=== PATIENT | male | born 1955 | race Caucasian/White ===

== ENCOUNTER → 2016-12-21 | Outpatient (CLI) | payer OTHER, MEDICARE ==
--- NOTE | 2016-12-21 09:45 | CT ---
EXAMINATION TYPE: CT cervical spine wo con DATE OF EXAM: 12/21/2016 COMPARISON: Correlation MRI 06/04/2011 HISTORY: 61-year-old male with a neck pain and cervicalgia. TECHNIQUE: Contiguous axial scanning of the cervical spine without IV contrast. Coronal and sagittal reconstructions performed. CT DLP: 751.3 mGycm Automated exposure control for dose reduction was used. FINDINGS: Postsurgical changes of C4-C5 ACDF. There is satisfactory interbody ankylosis and partial bony fusion along the facet joints as well. There is reversal of the normal cervical lordosis at this level. Bulky anterior endplate spondylosis extends both superiorly and inferiorly from the fused level. Supe riorly, this bulky extension of bone abuts the anterior margin of the C3 vertebral body. There is scott e sclerosis and subcortical cystic change at the site of abutment. There is facet arthropathy throughout and mild degenerative disc disease at C2-C3. Scattered uncovert ebral joint arthropathy. No craniocervical junction abnormality, predental space widening, or prevertebral soft tissue swellin g. There is degenerative change of the C1 dens articulation. At C2-C3, facet and uncovertebral joint arthropathy with a mild posterior disc bulge. No significant spinal canal or neuroforaminal stenosis. At C3-C4, the level above the fusion, there is tiny central disc protrusion with bilateral facet and uncovertebral joint degenerative change. This results in mild left neuroforaminal stenosis with out s ignificant spinal canal stenosis. At the fused C4-C5 level, there is uncovertebral joint degenerative change mildly narrowing bilateral neural foramina. No spinal canal stenosis. At C5-C6 and below, artifact from the patient's shoulders limits assessment of the spinal canal. At C5-C6, uncovertebral joint and facet degenerative changes mildly narrow the bilateral neuroforamin a. At C6-C7, similar changes are present with mild bilateral neuroforaminal stenosis, greater on the rig ht. At C7-T1, similar changes are present with mild right greater than left neuroforaminal stenosis. IMPRESSION: 1. Prior C4-C5 ACDF with satisfactory bony ankylosis. 2. However, there is bulky endplate spondylosis extending up and down from the fused level. Superior to the fused level, the bulky extension of bone abuts the anterior aspect of the C3 vertebral body wh ere there is associated pseudoarticular arthrosis likely due to continual abnormal bony abutment. 3. Reversal of the normal cervical lordosis centered at the fused level. 4. Variable mild multilevel neuroforaminal stenoses. Small posterior disc bulges at both C2-C3 and C3 -C4.
== END | disposition home or self-care (01) ==
LOC: RADCTMAIN 08:27
PROVIDERS: ATTEND Psychiatry & Neurology Neurology
DX: M99.71 Connective tissue and disc stenosis of intervertebral foramina of cervical region (principal); M50.21 Other cervical disc displacement, high cervical region; Z98.1 Arthrodesis status
CPT/HCPCS: 72125

== ENCOUNTER → 2017-03-25 | Outpatient (CLI) | payer OTHER, MEDICARE ==
--- NOTE | 2017-03-25 08:20 | MR ---
EXAMINATION TYPE: MR brain wo cspine wo/w DATE OF EXAM: 03/25/2017 COMPARISON: CT cervical spine December 21, 2016. MRI cervical spine June 04, 2011. HISTORY: Tremors, Cervicalgia per order. Bilateral hearing loss per patient. Neck pain causing numbne ss in fingers for 15 years per patient. Bilateral arm and finger pain or weakness per patient. TECHNIQUE: Multiplanar, multisequence imaging of the cervical spine, brain, and brainstem are all per formed without IV contrast. The cervical spine imaging is performed with IV contrast, patient is inje cted with 10.5 cc of gadolinium this for the study. FINDINGS: BRAIN: Diffusion weighted images demonstrate no evidence of a recent infarct or other diffusion abnormality. There is no worrisome extra-axial fluid collection. There is ventricular and sulcal prominence consis tent with diffuse cerebral atrophy. There are few scattered foci of T2 hyperintensity seen throughout the white matter bilaterally. Approximately 5-8 small lesions all measuring 4 mm or smaller in size are present. Midline structures demonstrate normal morphology. The craniocervical junction appears within normal limits. Normal vascular flow voids are present. The globes are intact bilaterally. There is increased fluid signal in left mastoid air cells. There is mild mucosal thickening inferior maxillary sinuses and bilateral ethmoid sinuses otherwise paranasal sinuses are clear. IMPRESSION: 1. There is mild diffuse cerebral atrophy and chronic small vessel ischemic change appreciated. 2. Possible mild left-sided mastoiditis, correlate clinically. C-SPINE: FINDINGS: Sagittal images of the cervical spine show the craniocervical junction to appear within nor mal limits. There is persistent levoconvex scoliosis centered in the upper thoracic spine. The cervi milo and upper thoracic spinal cord remains normal in caliber. There is persistent increased signal o r syrinx inferior C3 level most prominent through C6-C7 disc space level with smaller syrinx seen radha r cervicothoracic junction unchanged from prior. There is reversal of normal cervical curvature on sa gittal images redemonstrated. There is redemonstration of artifact from anterior fusion hardware C4-C 5 level. There is large bony fragment anteriorly at C3 level redemonstrated perhaps remote fractured osteophyte when correlating with prior CT. Vertebral body heights and disc space heights above and be low surgical levels are within normal limits. The bone marrow signal intensity is within normal limit s. No suspicious enhancement is seen. Axial images show the C2-C3 and C3-C4 levels to appear within normal limits. Syrinx begins inferior C 3 level Axial images at C4-C5 level show syrinx, there is artifact from surgical hardware. Spinal canal is pr eserved. Bilateral neural foramina are felt patent. Axial images at C5-C6 and C6-C7 level show new small central disc protrusions mildly effacing anterio r thecal sac since 2012 MRI. Bilateral neural foramina are felt to remain patent. Axial images at C7-T1 level remain within normal limits. There is medial course to bilateral carotid arteries noted. IMPRESSION: Reversal of normal cervical curvature with large syrinx redemonstrated. Postsurgical clark ge C4-C5 level again seen. No significant change in alignment. New mild degenerative changes C5-C6 an d C6-C7 level are appreciated.
--- NOTE | 2017-03-25 09:09 | BD ---
EXAMINATION TYPE: MG DEXA axial skeleton. DATE OF EXAM: 03/25/2017 COMPARISON: NONE CLINICAL HISTORY: Ankylosing spondylosis per order. Height: 250 Weight: 73 FRAX RISK QUESTIONS: Alcohol (3 or more units per day): NO Family History (Parent hip fracture): NO Glucocorticoids (More than 3mos): NO (Ex: prednisone, prednisolone, methylprednisolone, dexamethasone, and hydrocortisone). History of Fracture in Adulthood: Secondary Osteoporosis: 1. Type 1 Diabetes: NO 2. Hyperthyroidism: NO 3. Menopause before 45: N/A 4. Malnutrition: NO 5. Chronic liver disease: NO Rheumatoid Arthritis: YES Current Tobacco Use: NO RISK FACTORS HISTORY OF: Hip Fracture (Right/Left): NO Spine Fracture: NO History of Wrist Fracture: NO Surgery to Spine/Hip(right/left)/Wrist (right/left): C-SPINE Family History of Osteoporosis: NO Active: NO Diet low in dairy products/other sources of calcium: NO Lost more than 2 inches in height since high school: NO Frequent falls: YES Poor Health: SOMETIMES Adrenal Insufficiency: NO MEDICATIONS: ATENOLOL, ATORVASTATIN, CALCIUM ACETATE, FUROSEMIDE, HYDRALAZINE, JANUVIA, NORCO, TIZANI DINE, XANAX Additional History: EXAM MEASUREMENTS: Bone mineral densitometry was performed using the [id number] System. Bone mineral density as measured about the Lumbar spine is: ----- L1-L4(G/cm2): 1.344 T Score Values are as follows: ----- L2: 1.1 ----- L3: 1.9 ----- L4: 2.4 ----- L1-L4: 1.4 Bone mineral density BASELINE Bone mineral density about the R hip (g/cm2): 0.610 Bone mineral density about the L hip (g/cm2): 0.747 T Score values are as follows: -----R Neck: -2.3 -----L Neck: -1.3 -----R Total: -0.5 -----L Total: 0.0 Bone mineral density BASELINE IMPRESSION: Osteopenia (T Score between -2.5 and -1 as noted by T score values at the Femoral neck level in both hips. Bone density is felt falsely elevated in the low back due to reactiv e sclerosis and spurring. There is slightly increased risk of fracture and the patient may be conside red for treatment. Re-Screen 2-5 years. NOTE: T-SCORE=SD OF THE YOUNG ADULT MEAN.
--- NOTE | 2017-03-25 09:25 | MR ---
EXAMINATION TYPE: MR thoracic spine wo con DATE OF EXAM: 03/25/2017 COMPARISON: MRI cervical spine 06/04/2011 HISTORY: T-sp pain CONTRAST: Performed utilizing 0 mL intravenous Gadavist gadolinium contrast. TECHNIQUE: Multiplanar, multiecho imaging on a 3.0 Esther magnet is performed through the thoracic spi ne. Spinal cord syrinx is present. Fibreglass Lay Up Worker images identify a syrinx within the cervical spine C3 through C7 . Small degree of syrinx appears to extend throughout the thoracic spine. Cord expansion is not ident ified. Vertebral body alignment is normal. Vertebral body heights are preserved. Disc heights are preserved. Disc hydration levels are preserved. No spinal canal stenosis is evident. IMPRESSIONS: 1. Cord syrinx through the visualized thoracic spine. 2. The visualized cervical spine syrinx appears similar to 2012
== END ==
LOC: RADMRIMAIN 05:45
PROVIDERS: ATTEND Psychiatry & Neurology Neurology
DX: M85.851 Other specified disorders of bone density and structure, right thigh (principal); M85.852 Other specified disorders of bone density and structure, left thigh; G31.9 Degenerative disease of nervous system, unspecified; I67.82 Cerebral ischemia; M54.6 Pain in thoracic spine; M47.812 Spondylosis without myelopathy or radiculopathy, cervical region
CPT/HCPCS: 82565; 84520; 77080; 70551; 72146; 72156; 36415; A9581

== ENCOUNTER 2017-07-18 07:55 | Day surgery (SDC) | payer OTHER, MEDICARE ==
[2017-07-18] MEDS ORDERED: DIAZEPAM 5 MG TAB PO STA (08:36)
[2017-07-18 08:40] VITALS: RESP 20; TEMP 97.9
[2017-07-18 09:56] VITALS: BP 180/100; PULSE 75
[2017-08-14] MEDS ORDERED: PREMYELOGRAM MEDICATION REVIEW 1 EACH MISC PO ONE (12:00)
== END 2017-07-18 09:25 | disposition home or self-care (01) ==
LOC: RADPROMAIN 07:55
PROVIDERS: ATTEND Neurological Surgery
DX: M54.2 Cervicalgia (principal); Z53.9 Procedure and treatment not carried out, unspecified reason

== ENCOUNTER → 2017-07-18 | Outpatient (CLI) | payer OTHER, MEDICARE ==
--- NOTE | 2017-07-18 13:47 | US ---
EXAMINATION TYPE: US venous doppler duplex LE LT DATE OF EXAM: 07/18/2017 12:27 PM COMPARISON: NONE CLINICAL HISTORY: L03.116 cellulitis left lower extremity. swelling x 1 week, no h/o dvt SIDE PERFORMED: Left TECHNIQUE: The lower extremity deep venous system is examined utilizing real time linear array sonog dorene with graded compression, doppler sonography and color-flow sonography. VESSELS IMAGED: External Iliac Vein (EIV) Common Femoral Vein Deep Femoral Vein Greater Saphenous Vein * Femoral Vein Popliteal Vein Small Saphenous Vein * Proximal Calf Veins (* superficial vessels) Left Leg: Appears negative for DVT Grayscale, color doppler, spectral doppler imaging performed of the deep veins of the lower extremiti es. There is normal flow, compressibility, vascular waveforms. IMPRESSION: No sonographic evidence of deep venous arthrosis within the left lower extremity.
== END | disposition home or self-care (01) ==
LOC: RADUSWWP 12:00
PROVIDERS: ATTEND Internal Medicine
DX: M79.605 Pain in left leg (principal)

== ENCOUNTER 2017-08-01 08:04 | Day surgery (SDC) | payer OTHER, MEDICARE ==
[2017-08-01 08:31] VITALS: RESP 18; TEMP 98
[2017-08-01] MEDS ORDERED: DIAZEPAM 5 MG TAB PO STA (09:01)
[2017-08-01 09:06] VITALS: PULSE 68
--- NOTE | 2017-08-01 10:18 | CT ---
EXAMINATION TYPE: CT cervical spine wo con DATE OF EXAM: 08/01/2017 COMPARISON: NONE HISTORY: Neck pain with history of fusion CT DLP: 1103 mGycm Comment: The patient was scheduled for cervical myelography however given elevated blood pressure, di fficulty in patient positioning and extensive degenerative change of the lumbar spine myelography was discontinued. Unenhanced CT of the cervical spine was performed with bone and soft tissue window settings submitted . Coronal and sagittal reconstruction is obtained. C2-3: Normal C3-4: Large anterior osteophyte. Mild degenerative disc space narrowing. Minimal posterior disc bulge . No herniation or protrusion. No evidence for foraminal encroachment. C4-5: Changes of anterior cervical discectomy and fusion. Anterior fixation plate is noted. No eviden ce for recurrent or residual disease. No central stenosis seen. C5-6: Moderate degenerative disc space narrowing. Large anterior osteophyte. Posterior disc bulge wit h mild effacement ventral thecal sac. No definite herniation or central stenosis. Patient motion limi ts evaluation. Mild left foraminal encroachment. C6-7:Moderate degenerative disc space narrowing. Large anterior osteophyte. Posterior disc bulge with mild effacement ventral thecal sac. No definite herniation or central stenosis. Patient motion limit s evaluation. No significant foraminal encroachment. C7-T1: Normal There is reversal of the normal cervical lordosis which can be seen in patients with muscle spasticit y. Chronic mucosal thickening of the maxillary sinuses incidentally noted. No evidence for fracture o r subluxation. Curvature convex to the right. IMPRESSION: 1. Multilevel degenerative disc disease and disc bulging with spondylosis as discussed. 2. Changes of ACDF without evidence for recurrent disease.
--- NOTE | 2017-08-01 10:40 | FL ---
EXAMINATION TYPE: FL myelogram cervical DATE OF EXAM: 08/01/2017 Examination discontinued given patient's elevated blood pressure, difficulty in patient positioning a nd extensive degenerative change lumbar spine.
[2017-08-01 15:11] VITALS: BP 188/101
== END 2017-08-01 10:15 | disposition home or self-care (01) ==
LOC: RADPROMAIN 08:04
PROVIDERS: ATTEND Neurological Surgery
DX: M54.2 Cervicalgia (principal)
CPT/HCPCS: 62284; 62302; 72125

== ENCOUNTER 2024-06-07 19:17 | Observation (INO) | payer MEDICARE ==
--- NOTE | 2024-06-07 19:23 | ED ---
Recheck HPI - General Chief Complaint: Recheck/Abnormal Lab/Rx Stated Complaint: Hyperkelemia Time Seen by Provider: 06/07/24 19:22 Source: patient, EMS, RN notes reviewed, old records reviewed Mode of arrival: EMS Limitations: no limitations - History of Present Illness Initial Comments: This is a 69 male transferred from outside facility for hyperkalemia with arrhythmia patient self complains of chronic pain back pain neck pain body pain MD Complaint: abnormal lab (HyperK) -: unknown Returns Today for: Called Because of Abnormal Lab/Test Symptoms Since Prior Visit: worsening pain Associated Symptoms: none Treatments Prior to Arrival: Given Pain Meds on - Related Data Home Medications Medication Instructions Recorded Confirmed ALPRAZolam [Xanax] 0.25 mg PO BID PRN 06/07/24 06/07/24 Lactulose 10 gm PO BID 06/07/24 06/07/24 Rosuvastatin [Crestor] 10 mg PO DAILY 06/07/24 06/07/24 tiZANidine [Zanaflex] 4 mg PO BID PRN 06/07/24 06/07/24 Previous Rx's Medication Instructions Recorded amLODIPine [Norvasc] 5 mg PO DAILY #30 tab 06/09/24 Allergies Allergy/AdvReac Type Severity Reaction Status Date / Time No Known Allergies Allergy Verified 06/07/24 20:27 Review of Systems ROS Statement: Those systems with pertinent positive or pertinent negative responses have been documented in the HPI. ROS Other: All systems not noted in ROS Statement are negative. Past Medical History Past Medical History: Coronary Artery Disease (CAD), Diabetes Mellitus, Hearing Disorder / Deafness, Hyperlipidemia, Hypertension, Osteoarthritis (OA), Rheumatoid Arthritis (RA) Additional Past Medical History / Comment(s): recent lt leg abscess-resolved Cellulitis LLLeg July 2017 History of Any Multi-Drug Resistant Organisms: None Reported, MRSA Date of last positivie culture/infection: 2015 MDRO Source:: leg abcess Past Surgical History: Back Surgery, Joint Replacement, Orthopedic Surgery, Tonsillectomy Additional Past Surgical History / Comment(s): rashmi shoulder, 1 total knee, neck - chiari 1 malformation Past Anesthesia/Blood Transfusion Reactions: No Reported Reaction Additional Past Anesthesia/Blood Transfusion Reaction / Comment(s): no previous blood transfusions Past Psychological History: Anxiety Smoking Status: Never smoker Past Alcohol Use History: Daily Past Drug Use History: None Reported - Past Family History Mother Family Medical History: Diabetes Mellitus, Hypertension General Exam General appearance: alert, in no apparent distress, anxious Head exam: Present: atraumatic, normocephalic, normal inspection Eye exam: Present: normal appearance, PERRL, EOMI. Absent: scleral icterus, conjunctival injection, periorbital swelling ENT exam: Present: normal exam, mucous membranes moist Neck exam: Present: normal inspection. Absent: tenderness, meningismus, lymphadenopathy Respiratory exam: Present: normal lung sounds bilaterally. Absent: respiratory distress, wheezes, rales, rhonchi, stridor Cardiovascular Exam: Present: normal rhythm, tachycardia, normal heart sounds. Absent: systolic murmur, diastolic murmur, rubs, gallop, clicks GI/Abdominal exam: Present: soft, normal bowel sounds. Absent: distended, tenderness, guarding, rebound, rigid Extremities exam: Present: normal inspection, full ROM, normal capillary refill. Absent: tenderness, pedal edema, joint swelling, calf tenderness Back exam: Present: normal inspection Neurological exam: Present: alert, oriented X3, CN II-XII intact Psychiatric exam: Present: normal affect, normal mood Skin exam: Present: warm, dry, intact, normal color. Absent: rash Course Vital Signs 06/07/24 06/07/24 06/07/24 19:18 20:59 21:30 Temperature 98 F Pulse Rate 111 H 105 H 101 H Respiratory 18 18 18 Rate Blood Pressure 117/78 110/85 150/77 O2 Sat by Pulse 98 96 96 Oximetry 06/07/24 06/07/24 06/08/24 22:30 23:40 00:03 Temperature 98.8 F Pulse Rate 96 100 101 H Respiratory 18 20 18 Rate Blood Pressure 124/98 117/89 122/81 O2 Sat by Pulse 96 95 96 Oximetry 06/08/24 06/08/24 06/08/24 01:00 02:00 03:00 Temperature Pulse Rate 80 87 81 Respiratory 14 Rate Blood Pressure 113/85 134/78 117/76 O2 Sat by Pulse 97 98 95 Oximetry 06/08/24 06/08/24 06/08/24 04:00 05:00 06:00 Temperature 97.8 F Pulse Rate 72 72 86 Respiratory 14 14 Rate Blood Pressure 126/72 103/70 179/77 O2 Sat by Pulse 97 96 97 Oximetry 06/08/24 06/08/24 06/08/24 06:53 08:27 11:39 Temperature Pulse Rate 91 88 86 Respiratory 16 18 17 Rate Blood Pressure 172/75 154/84 146/88 O2 Sat by Pulse 96 96 98 Oximetry 06/08/24 06/08/24 15:31 18:19 Temperature 98 F Pulse Rate 79 85 Respiratory 17 18 Rate Blood Pressure 152/84 168/84 O2 Sat by Pulse 98 96 Oximetry - Reevaluation(s) Reevaluation #1: 06/07/24 19:46 Medical records reviewed Reevaluation #2: 06/07/24 19:46 Patient complaining of pain chronic pain Reevaluation #3: 06/07/24 19:46 Patient informed of results questions answered Reevaluation #4: Was pt. sent in by a medical professional or institution (STEVE Castillo, ASSOCIATE DIRECTOR OF SALES, urgent care, hospital, or fci...) When possible be specific @ -no Did you speak to anyone other than the patient for history (EMS, parent, family, police, friend...)? What history was obtained from this source @ -no Did you review nursing and triage notes (agree or disagree)? Why? @ -agree Are old charts reviewed (outside hosp., previous admission, EMS record, old EKG, old radiological studies, urgent care reports/EKG's, fci records)? Report findings @ -yes Differential Diagnosis (chest pain, altered mental status, abdominal pain women, abdominal pain men, vaginal bleeding, weakness, fever, dyspnea, syncope, headache, dizziness, GI bleed, back pain, seizure, CVA, palpatations, mental health, musculoskeletal)? @ -prior EKG interpreted by me (3pts min.). @ -yes X-rays interpreted by me (1pt min.). @ -yes negative for acute disease CT interpreted by me (1pt min.). @ -no U/S interpreted by me (1pt. min.). @ -no What testing was considered but not performed or refused? (CT, X-rays, U/S, labs)? Why? @ -none What meds were considered but not given or refused? Why? @ -none Did you discuss the management of the patient with other professionals (professionals i.e. , STEVE, ASSOCIATE DIRECTOR OF SALES, lab, RT, psych nurse, case management social worker, systems engineering manager, teacher, air support control officer, case aide)? Give summary @ -no Was smoking cessation discussed for >3mins.? @ -no Was critical care preformed (if so, how long)? @ -yes31 Were there social determinants of health that impacted care today? How? (Homelessness, low income, unemployed, alcoholism, drug addiction, transportation, low edu. Level, literacy, decrease access to med. care, long term, rehab)? @ -none Was there de-escalation of care discussed even if they declined (Discuss DNR or withdrawal of care, Hospice)? DNR status @ -no What co-morbidities impacted this encounter? (DM, HTN, Smoking, COPD, CAD, Cancer, CVA, ARF, Chemo, Hep., AIDS, mental health diagnosis, sleep apnea, morbid obesity)? @ -none Was patient admitted / discharged? Hospital course, mention meds given and route, prescriptions, significant lab abnormalities, going to OR and other pertinent info. @ - 69 male to the ER for evaluation patient will be admitted for chronic kidney disease hyperkalemia with arrhythmia at outside facility patient's potassium is improved and will admit for dialysis evaluation Admitted Undiagnosed new problem with uncertain prognosis? @ -no Drug Therapy requiring intensive monitoring for toxicity (Heparin, Nitro, Insulin, Cardizem)? @ -no Were any procedures done? @ -no Diagnosis/symptom? @ -Hyperkalemia and renal failure Acute, or Chronic, or Acute on Chronic? @ -Acute Uncomplicated (without systemic symptoms) or Complicated (systemic symptoms)? @ -Complicated Side effects of treatment? @ -no Exacerbation, Progression, or Severe Exacerbation? @ -exacerbation Poses a threat to life or bodily function? How? (Chest pain, [place], [place], pneumonia, PE, COPD, DKA, ARF, appy, cholecystitis, CVA, Diverticulitis, Homicidal, Suicidal, threat to staff... and all critical care pts) @ -yes abnormal potassium level - Consultations Consultation #1: Spoke with [facility] to admit this patient Medical Decision Making - Medical Decision Making 69 male to the ER for evaluation patient will be admitted for chronic kidney disease hyperkalemia with arrhythmia at outside facility patient's potassium is improved and will admit for dialysis evaluation - Lab Data Result diagrams: 06/09/24 07:08 06/09/24 07:08 Lab Results 06/07/24 06/07/24 06/07/24 Range/Units 19:28 19:28 19:28 WBC 11.2 H (3.8-10.6) k/uL RBC 3.30 L (4.30-5.90) m/uL Hgb 10.8 L (13.0-17.5) gm/dL Hct 33.5 L (39.0-53.0) % MCV 101.6 H (80.0-100.0) fL MCH 32.9 (25.0-35.0) pg MCHC 32.4 (31.0-37.0) g/dL RDW 13.5 (11.5-15.5) % Plt Count 284 (150-450) k/uL MPV 7.1 Neutrophils % 80 % Lymphocytes % 10 % Monocytes % 6 % Eosinophils % 1 % Basophils % 0 % Neutrophils # 8.9 H (1.3-7.7) k/uL Lymphocytes # 1.2 (1.0-4.8) k/uL Monocytes # 0.7 (0-1.0) k/uL Eosinophils # 0.1 (0-0.7) k/uL Basophils # 0.1 (0-0.2) k/uL Hypochromasia Slight Macrocytosis Slight PT 10.1 (10.0-12.5) sec INR 0.9 (<1.2) APTT 19.8 L (22.0-30.0) sec Sodium 141 (137-145) mmol/L Potassium 5.1 (3.5-5.1) mmol/L Chloride 116 H (98-107) mmol/L Carbon Dioxide 8 L* (22-30) mmol/L Anion Gap 17 mmol/L BUN 50 H (9-20) mg/dL Creatinine 2.35 H (0.66-1.25) mg/dL Est GFR (CKD-EPI)AfAm 32 (>60 ml/min/1.73 sqM) Est GFR (CKD-EPI)NonAf 27 (>60 ml/min/1.73 sqM) Glucose 145 H (74-99) mg/dL Plasma Lactic Acid Mikie (0.7-2.0) mmol/L Calcium 9.6 (8.4-10.2) mg/dL Phosphorus 4.8 H (2.5-4.5) mg/dL Magnesium 2.3 (1.6-2.3) mg/dL Total Bilirubin 0.4 (0.2-1.3) mg/dL AST 15 L (17-59) U/L ALT 12 (4-49) U/L Alkaline Phosphatase 63 (38-126) U/L Troponin I (0.000-0.034) ng/mL NT-Pro-B Natriuret Pep 544 pg/mL Total Protein 7.2 (6.3-8.2) g/dL Albumin 4.6 (3.5-5.0) g/dL 06/07/24 06/07/24 Range/Units 19:28 19:28 WBC (3.8-10.6) k/uL RBC (4.30-5.90) m/uL Hgb (13.0-17.5) gm/dL Hct (39.0-53.0) % MCV (80.0-100.0) fL MCH (25.0-35.0) pg MCHC (31.0-37.0) g/dL RDW (11.5-15.5) % Plt Count (150-450) k/uL MPV Neutrophils % % Lymphocytes % % Monocytes % % Eosinophils % % Basophils % % Neutrophils # (1.3-7.7) k/uL Lymphocytes # (1.0-4.8) k/uL Monocytes # (0-1.0) k/uL Eosinophils # (0-0.7) k/uL Basophils # (0-0.2) k/uL Hypochromasia Macrocytosis PT (10.0-12.5) sec INR (<1.2) APTT (22.0-30.0) sec Sodium (137-145) mmol/L Potassium (3.5-5.1) mmol/L Chloride (98-107) mmol/L Carbon Dioxide (22-30) mmol/L Anion Gap mmol/L BUN (9-20) mg/dL Creatinine (0.66-1.25) mg/dL Est GFR (CKD-EPI)AfAm (>60 ml/min/1.73 sqM) Est GFR (CKD-EPI)NonAf (>60 ml/min/1.73 sqM) Glucose (74-99) mg/dL Plasma Lactic Acid Mikie 3.3 H* (0.7-2.0) mmol/L Calcium (8.4-10.2) mg/dL Phosphorus (2.5-4.5) mg/dL Magnesium (1.6-2.3) mg/dL Total Bilirubin (0.2-1.3) mg/dL AST (17-59) U/L ALT (4-49) U/L Alkaline Phosphatase (38-126) U/L Troponin I <0.012 (0.000-0.034) ng/mL NT-Pro-B Natriuret Pep pg/mL Total Protein (6.3-8.2) g/dL Albumin (3.5-5.0) g/dL - EKG Data -: EKG Interpreted by Me (EKG is sinus tachycardia 116 MT 18 QRS 113 QTc 435) Critical Care Time Critical Care Time: Yes Total Critical Care Time: 31 Disposition Clinical Impression: Hyperkalemia, CKD (chronic kidney disease) Disposition: ADMITTED IP TO THIS HOSP Condition: Fair Is patient prescribed a controlled substance at d/c from ED?: No Time of Disposition: 19:45
[2024-06-07] MEDS: SODIUM CHLORIDE 0.9% 1,000 ML IV STA (19:32)
[2024-06-07] MEDS: SODIUM ZIRCONIUM CYCLOSILICATE 10 GM PACKET PO ONE (19:32)
[2024-06-07 19:37] LABS: Basophils # (A) 0.1 k/uL (0-0.2); Basophils % (A) 0 %; Eosinophils # (A) 0.1 k/uL (0-0.7); Eosinophils % (A) 1 %; HCT 33.5 % (39.0-53.0); HGB 10.8 gm/dL (13.0-17.5); Hypochromasia Slight; Lymphocytes # (A) 1.2 k/uL (1.0-4.8); Lymphocytes % (A) 10 %; MCH 32.9 pg (25.0-35.0); MCHC 32.4 g/dL (31.0-37.0); MCV 101.6 fL (80.0-100.0); Macrocytosis Slight; Mean Platelet Volume 7.1; Monocytes # (A) 0.7 k/uL (0-1.0); Monocytes % (A) 6 %; Neutrophils # (A) 8.9 k/uL (1.3-7.7); Neutrophils % (A) 80 %; Platelet Count 284 k/uL (150-450); RDW 13.5 % (11.5-15.5); WBC 11.2 k/uL (3.8-10.6)
[2024-06-07] MEDS ORDERED: NALOXONE 0.4 MG/ML 1 ML VIAL IV PRN (19:44)
[2024-06-07] MEDS ORDERED: ONDANSETRON 4 MG/2 ML VIAL IVP PRN (19:44)
[2024-06-07 19:48] LABS: ALT 12 U/L (4-49); AST 15 U/L (17-59); African American GFR (CKD) 32 (>60 ml/min/1.73 sqM); Albumin 4.6 g/dL (3.5-5.0); Alkaline Phosphatase 63 U/L (38-126); Anion Gap 17 mmol/L; Blood Urea Nitrogen 50 mg/dL (9-20); Calcium 9.6 mg/dL (8.4-10.2); Chloride 116 mmol/L (98-107); Glucose 145 mg/dL (74-99); Magnesium 2.3 mg/dL (1.6-2.3); Non-African American GFR(CKD) 27 (>60 ml/min/1.73 sqM); Phosphorus 4.8 mg/dL (2.5-4.5); Potassium 5.1 mmol/L (3.5-5.1); Sodium 141 mmol/L (137-145); Total Bilirubin 0.4 mg/dL (0.2-1.3); Total Protein 7.2 g/dL (6.3-8.2)
[2024-06-07 19:52] LABS: INR 0.9 (<1.2); Prothrombin Time 10.1 sec (10.0-12.5)
[2024-06-07 19:56] LABS: NT-Pro-B-Type Natriuretic Pept 544 pg/mL
[2024-06-07] MEDS: HYDROmorphone 1 MG/ML 1 ML SYRINGE IVP STA (19:58)
[2024-06-07 19:59] LABS: Partial Thromboplastin Time 19.8 sec (22.0-30.0)
[2024-06-07] MEDS: SODIUM CHLORIDE 0.9% 1,000 ML IV SCH (20:00)
[2024-06-07 20:03] LABS: Carbon Dioxide 8 mmol/L (22-30)
[2024-06-07] MEDS: SODIUM CHLORIDE 0.9% 500 ML 500 ML IV ONE (20:50)
[2024-06-07] MEDS: SODIUM BICARB 8.4% 50 ML SYR (1 MEQ/ML) IV STA (20:51)
[2024-06-07] MEDS: DEXTROSE 5% IN WATER 1,000 ML with SODIUM BICARB (1 MEQ/ML) 150 ML IV SCH (22:44)
[2024-06-07 23:44] LABS: Glucose,Whole Blood 158 mg/dL (70-110)
[2024-06-08] MEDS: SODIUM CHLORIDE 0.9% 1,000 ML IV ONE (00:44)
[2024-06-08 00:49] LABS: Appearance,Urine Clear (Clear); Bilirubin,Urine Negative (Negative); Blood,Urine Trace (Negative); Color,Urine Colorless; Glucose,Urine (UA) Negative (Negative); Ketones,Urine Negative (Negative); Leukocyte Esterase,Urine Negative (Negative); Mucus,Urine Rare /hpf; Nitrite,Urine Negative (Negative); PH, Urine 5.5 (5.0-8.0); Protein,Urine 1+ (Negative); Specific Gravity,Urine 1.014 (1.001-1.035); Squamous Epithelial Cell,Urine <1 /hpf (0-4); Urobilinogen,Urine <2.0 mg/dL (<2.0); WBC,Urine 1 /hpf (0-5)
[2024-06-08] MEDS: HYDROmorphone 1 MG/ML 1 ML SYRINGE IVP PRN (02:27)
[2024-06-08 02:57] LABS: Basophils # (A) 0.1 k/uL (0-0.2); Basophils % (A) 1 %; Eosinophils # (A) 0.1 k/uL (0-0.7); Eosinophils % (A) 1 %; HCT 30.8 % (39.0-53.0); HGB 9.9 gm/dL (13.0-17.5); Hypochromasia Slight; Lymphocytes # (A) 1.1 k/uL (1.0-4.8); Lymphocytes % (A) 14 %; MCH 32.5 pg (25.0-35.0); MCV 101.6 fL (80.0-100.0); Macrocytosis Slight; Mean Platelet Volume 7.3; Monocytes # (A) 0.6 k/uL (0-1.0); Monocytes % (A) 8 %; Neutrophils # (A) 5.8 k/uL (1.3-7.7); Neutrophils % (A) 74 %; Platelet Count 255 k/uL (150-450); RBC 3.03 m/uL (4.30-5.90); RDW 13.5 % (11.5-15.5); WBC 7.8 k/uL (3.8-10.6)
[2024-06-08 03:09] LABS: ALT 11 U/L (4-49); AST 14 U/L (17-59); African American GFR (CKD) 34 (>60 ml/min/1.73 sqM); Albumin 4.1 g/dL (3.5-5.0); Alkaline Phosphatase 54 U/L (38-126); Anion Gap 12 mmol/L; Blood Urea Nitrogen 46 mg/dL (9-20); Calcium 8.9 mg/dL (8.4-10.2); Carbon Dioxide 14 mmol/L (22-30); Chloride 114 mmol/L (98-107); Glucose 135 mg/dL (74-99); Magnesium 2.1 mg/dL (1.6-2.3); Non-African American GFR(CKD) 30 (>60 ml/min/1.73 sqM); Phosphorus 5.1 mg/dL (2.5-4.5); Potassium 5.4 mmol/L (3.5-5.1); Sodium 140 mmol/L (137-145); Total Bilirubin 0.3 mg/dL (0.2-1.3); Total Protein 6.6 g/dL (6.3-8.2)
[2024-06-08] MEDS ORDERED: tiZANidine 4 MG TAB PO PRN (06:05)
[2024-06-08] MEDS ORDERED: ACETAMINOPHEN TAB 325 MG TAB PO PRN (06:06)
[2024-06-08] MEDS: PANTOPRAZOLE 40 MG TABLET PO SCH (06:20)
--- NOTE | 2024-06-08 08:20 | US ---
EXAMINATION TYPE: US kidneys/renal and bladder DATE OF EXAM: 06/08/2024 COMPARISON: Outside CT 06/07/24 CLINICAL INDICATION: Male, 69 years old with history of SAUNDRA TECHNIQUE: Grayscale imaging of the bilateral kidneys and urinary bladder: FINDINGS: EXAM MEASUREMENTS: Right Kidney: 9.9 x 4.9 x 5.5 cm Left Kidney: 9.2 x 4.9 x 4.9 cm Security Incident Handler notes: Difficult scan- pt shaking during scan and unable to take a breath in and hold i t Right Kidney: No evidence of hydro, probable, multiple cysts scattered throughout kidney, largest mid = 2.7 x 2.3 x 2.3 cm Left Kidney: No evidence of hydro, probable multiple cysts scattered throughout kidney, largest upper pole= 3.1 x 2.5 x 3.3 cm Bladder: wnl Bilateral Jets seen: No IMPRESSION: 1. Limited detailed assessment of the kidneys; technically difficult scan due to patient's condition. 2. There are multiple cortical lesions, likely cysts, largest measuring up to 3.3 cm. Again, the asse ssment is limited due to patient's condition. Consider 3 month follow-up contrast enhanced CT to furt her characterize and assess for any changes compared to the patient's recent outside CT. 3. No hydronephrosis. [facility], Workstation: MY, 06/08/2024 8:18 AM
[2024-06-08] MEDS: ALPRAZolam 0.25 MG TAB PO PRN (08:28)
[2024-06-08] MEDS: ATORVASTATIN 20 MG TAB PO SCH (08:28)
[2024-06-08] MEDS: HEPARIN SODIUM,PORCINE 5,000 UNIT/ML 1 ML VIAL SQ SCH ×2 (08:29→20:52)
--- NOTE | 2024-06-08 10:05 | P.HPIM ---
History of Present Illness This is a pleasant 69 years old male with past medical history of multiple medical problems as below He has history of kidney disease and has been following up with his director of student financial services Dr. wise (? spell) as he explained, he was doing routine follow-up and she called him asking him to come to the emergency room because of his creatinine number. Patient has been seeing his director of student financial services for about 6 to 7 months. Patient denies any specific symptoms no chest pain or dyspnea no diarrhea or vomiting. No other GI or sympto he denies smoking alcohol or illicit drugs ms. No fever or chills. No headache dizziness weakness numbness He is afebrile, is mildly tachycardic with heart rate 111-96 He has mild leukocytosis of 11.2, hemoglobin 10.8, creatinine elevated 2.35, baseline looks like 1.5-2 in 2021. Last month his creatinine was 2.4. Carbodec sat is low as 8 Lactic acid elevated at 3.3, EKG showing sinus tachycardia at [address]-T changes Renal ultrasound is requested and is pending Review of Systems Review of systems CONSTITUTIONAL: No fever, no malaise, no fatigue. HEENT: No recent visual problems or hearing problems. Denied any sore throat. CARDIOVASCULAR: No orthopnea, PND, no palpitations, no syncope. PULMONARY: No shortness of breath, no cough, no hemoptysis. GASTROINTESTINAL: No diarrhea, no nausea, no vomiting, no abdominal pain. Normoactive bowel sounds. NEUROLOGICAL: No headaches, no weakness, no numbness. HEMATOLOGICAL: Denies any bleeding or petechiae. GENITOURINARY: Denies any burning micturition, frequency, or urgency. MUSCULOSKELETAL/RHEUMATOLOGICAL: Denies any joint pain, swelling, or any muscle pain. ENDOCRINE: Denies any polyuria or polydipsia. Past Medical History Past Medical History: Coronary Artery Disease (CAD), Diabetes Mellitus, Hearing Disorder / Deafness, Hyperlipidemia, Hypertension, Osteoarthritis (OA), Rheumatoid Arthritis (RA) Additional Past Medical History / Comment(s): recent lt leg abscess-resolved Cellulitis LLLeg July 2017 History of Any Multi-Drug Resistant Organisms: None Reported, MRSA Date of last positivie culture/infection: 2015 MDRO Source:: leg abcess Past Surgical History: Back Surgery, Joint Replacement, Orthopedic Surgery, Tonsillectomy Additional Past Surgical History / Comment(s): rashmi shoulder, 1 total knee, neck - chiari 1 malformation Past Anesthesia/Blood Transfusion Reactions: No Reported Reaction Additional Past Anesthesia/Blood Transfusion Reaction / Comment(s): no previous blood transfusions Past Psychological History: Anxiety Smoking Status: Never smoker Past Alcohol Use History: Daily Past Drug Use History: None Reported - Past Family History Mother Family Medical History: Diabetes Mellitus, Hypertension Medications and Allergies Home Medications Medication Instructions Recorded Confirmed Type ALPRAZolam [Xanax] 0.25 mg PO BID PRN 06/07/24 06/07/24 History Furosemide [Lasix] 40 mg PO DAILY 06/07/24 06/07/24 History Lactulose 10 gm PO BID 06/07/24 06/07/24 History Rosuvastatin [Crestor] 10 mg PO DAILY 06/07/24 06/07/24 History lisinopriL [Zestril] 10 mg PO DAILY 06/07/24 06/07/24 History tiZANidine [Zanaflex] 4 mg PO BID PRN 06/07/24 06/07/24 History Allergies Allergy/AdvReac Type Severity Reaction Status Date / Time No Known Allergies Allergy Verified 06/07/24 20:27 Physical Exam Vitals: Vital Signs Temp Pulse Resp BP Pulse Ox 06/08/24 08:27 88 18 154/84 96 06/08/24 06:53 91 16 172/75 96 06/08/24 06:00 86 14 179/77 97 06/08/24 05:00 72 103/70 96 06/08/24 04:00 97.8 F 72 14 126/72 97 06/08/24 03:00 81 117/76 95 06/08/24 02:00 87 134/78 98 06/08/24 01:00 80 14 113/85 97 06/08/24 00:03 101 H 18 122/81 96 06/07/24 23:40 98.8 F 100 20 117/89 95 06/07/24 22:30 96 18 124/98 96 06/07/24 21:30 101 H 18 150/77 96 06/07/24 20:59 105 H 18 110/85 96 06/07/24 19:18 98 F 111 H 18 117/78 98 Intake and Output 06/07/24 06/08/24 06/08/24 22:59 06:59 14:59 Other: Weight 109.769 kg GENERAL: The patient is alert and oriented x3, not in any acute distress. Well developed, well nourished. HEENT: Pupils are round and equally reacting to light. EOMI. No scleral icterus. No conjunctival pallor. Normocephalic, atraumatic. No pharyngeal erythema. No thyromegaly. CARDIOVASCULAR: S1 and S2 present. No murmurs, rubs, or gallops. PULMONARY: Chest is clear to auscultation, no wheezing , no crackles. ABDOMEN: Soft, nontender, nondistended, normoactive bowel sounds. No palpable organomegaly. MUSCULOSKELETAL: No joint swelling or deformity. EXTREMITIES: No cyanosis, clubbing, or pedal edema. NEUROLOGICAL: Gross neurological examination did not reveal any focal deficits. SKIN: No rashes. no petechiae. Results CBC & Chem 7: 06/08/24 02:38 06/08/24 02:38 Labs: Abnormal Lab Results - Last 24 Hours (Table) 06/07/24 06/07/24 06/07/24 Range/Units 19:28 19:28 19:28 WBC 11.2 H (3.8-10.6) k/uL RBC 3.30 L (4.30-5.90) m/uL Hgb 10.8 L (13.0-17.5) gm/dL Hct 33.5 L (39.0-53.0) % MCV 101.6 H (80.0-100.0) fL Neutrophils # 8.9 H (1.3-7.7) k/uL APTT 19.8 L (22.0-30.0) sec Potassium (3.5-5.1) mmol/L Chloride 116 H (98-107) mmol/L Carbon Dioxide 8 L* (22-30) mmol/L BUN 50 H (9-20) mg/dL Creatinine 2.35 H (0.66-1.25) mg/dL Glucose 145 H (74-99) mg/dL POC Glucose (mg/dL) (70-110) mg/dL Plasma Lactic Acid Mikie (0.7-2.0) mmol/L Phosphorus 4.8 H (2.5-4.5) mg/dL AST 15 L (17-59) U/L Urine Protein (Negative) Urine Blood (Negative) Urine Mucus (None) /hpf 06/07/24 06/07/24 06/07/24 Range/Units 19:28 22:11 23:43 WBC (3.8-10.6) k/uL RBC (4.30-5.90) m/uL Hgb (13.0-17.5) gm/dL Hct (39.0-53.0) % MCV (80.0-100.0) fL Neutrophils # (1.3-7.7) k/uL APTT (22.0-30.0) sec Potassium (3.5-5.1) mmol/L Chloride (98-107) mmol/L Carbon Dioxide (22-30) mmol/L BUN (9-20) mg/dL Creatinine (0.66-1.25) mg/dL Glucose (74-99) mg/dL POC Glucose (mg/dL) 158 H (70-110) mg/dL Plasma Lactic Acid Mikie 3.3 H* 4.9 H* (0.7-2.0) mmol/L Phosphorus (2.5-4.5) mg/dL AST (17-59) U/L Urine Protein (Negative) Urine Blood (Negative) Urine Mucus (None) /hpf 06/08/24 06/08/24 06/08/24 Range/Units 00:03 02:38 02:38 WBC (3.8-10.6) k/uL RBC 3.03 L (4.30-5.90) m/uL Hgb 9.9 L (13.0-17.5) gm/dL Hct 30.8 L (39.0-53.0) % MCV 101.6 H (80.0-100.0) fL Neutrophils # (1.3-7.7) k/uL APTT (22.0-30.0) sec Potassium 5.4 H (3.5-5.1) mmol/L Chloride 114 H (98-107) mmol/L Carbon Dioxide 14 L (22-30) mmol/L BUN 46 H (9-20) mg/dL Creatinine 2.21 H (0.66-1.25) mg/dL Glucose 135 H (74-99) mg/dL POC Glucose (mg/dL) (70-110) mg/dL Plasma Lactic Acid Mikie (0.7-2.0) mmol/L Phosphorus 5.1 H (2.5-4.5) mg/dL AST 14 L (17-59) U/L Urine Protein 1+ H (Negative) Urine Blood Trace H (Negative) Urine Mucus Rare H (None) /hpf 06/08/24 Range/Units 02:38 WBC (3.8-10.6) k/uL RBC (4.30-5.90) m/uL Hgb (13.0-17.5) gm/dL Hct (39.0-53.0) % MCV (80.0-100.0) fL Neutrophils # (1.3-7.7) k/uL APTT (22.0-30.0) sec Potassium (3.5-5.1) mmol/L Chloride (98-107) mmol/L Carbon Dioxide (22-30) mmol/L BUN (9-20) mg/dL Creatinine (0.66-1.25) mg/dL Glucose (74-99) mg/dL POC Glucose (mg/dL) (70-110) mg/dL Plasma Lactic Acid Mikie 2.1 H* (0.7-2.0) mmol/L Phosphorus (2.5-4.5) mg/dL AST (17-59) U/L Urine Protein (Negative) Urine Blood (Negative) Urine Mucus (None) /hpf Assessment and Plan Assessment: Acute kidney injury on chronic kidney disease stage III Tachycardia Chronic back pain and neck pain, mild Chronic anemia Metabolic acidosis, with possible elevated lactic acid and creatinine Plan: Continue with sodium bicarb at 75 mL/h Hold Lasix 40 mg once daily and lisinopril 10 mg daily Follow-up renal ultrasound Nephrology team consult Labs and medication were reviewed.. Continue same treatment. Continue with symptomatic treatment. Resume home medication. Monitor labs and vitals. DVT and GI prophylaxis. Further recommendations as per clinical course of the patient DVT prophylaxis: Subcutaneous heparin GI Prophylaxis: Pepcid PT/OT: Pending Prognosis is guarded
[2024-06-08] MEDS ORDERED: hydrALAZINE HCL 20 MG/ML 1 ML VIAL IVP PRN (10:35)
--- NOTE | 2024-06-08 10:38 | P.NPCON ---
History of Present Illness - Reason for Consult acute renal failure, chronic renal failure - History of Present Illness Reason for consultation: Acute kidney injury on chronic kidney disease History of present illness: Patient is a 69-year-old male seen in renal consultation for acute kidney injury on chronic kidney disease. Patient was seen and examined in the emergency room. Patient has chronic kidney disease stage IIIb with baseline creatinine near 2. Patient was sent to the hospital due to abnormal labs. Patient was told he had a high potassium level and to go to the hospital. On admission his potassium level was 5.1 and is 5.4 this morning. Renal function is slightly improved with creatinine 2.2 this morning. Patient states his oral intake has been fair. He denies any vomiting or diarrhea. Denies history of diabetes or coronary artery disease. Denies regular use of nonsteroidals. Denies gross hematuria or dysuria. He is currently on room air. He was taking Lasix as well as lisinopril outpatient and both are currently held. He is currently maintained on bicarb drip running at 75 cc an hour. Vital signs are stable. General: No acute distress. HEENT: Head exam is unremarkable. LUNGS: No audible rhonchi or wheezes. HEART: Rate and Rhythm are regular. ABDOMEN: Nontender. EXTREMITITES: No edema. Past Medical History Past Medical History: Coronary Artery Disease (CAD), Diabetes Mellitus, Hearing Disorder / Deafness, Hyperlipidemia, Hypertension, Osteoarthritis (OA), Rheumatoid Arthritis (RA) Additional Past Medical History / Comment(s): recent lt leg abscess-resolved Cellulitis LLLeg July 2017 History of Any Multi-Drug Resistant Organisms: None Reported, MRSA Date of last positivie culture/infection: 2015 MDRO Source:: leg abcess Past Surgical History: Back Surgery, Joint Replacement, Orthopedic Surgery, Tonsillectomy Additional Past Surgical History / Comment(s): rashmi shoulder, 1 total knee, neck - chiari 1 malformation Past Anesthesia/Blood Transfusion Reactions: No Reported Reaction Additional Past Anesthesia/Blood Transfusion Reaction / Comment(s): no previous blood transfusions Past Psychological History: Anxiety Smoking Status: Never smoker Past Alcohol Use History: Daily Past Drug Use History: None Reported - Past Family History Mother Family Medical History: Diabetes Mellitus, Hypertension Medications and Allergies Home Medications Medication Instructions Recorded Confirmed Type ALPRAZolam [Xanax] 0.25 mg PO BID PRN 06/07/24 06/07/24 History Furosemide [Lasix] 40 mg PO DAILY 06/07/24 06/07/24 History Lactulose 10 gm PO BID 06/07/24 06/07/24 History Rosuvastatin [Crestor] 10 mg PO DAILY 06/07/24 06/07/24 History lisinopriL [Zestril] 10 mg PO DAILY 06/07/24 06/07/24 History tiZANidine [Zanaflex] 4 mg PO BID PRN 06/07/24 06/07/24 History Allergies Allergy/AdvReac Type Severity Reaction Status Date / Time No Known Allergies Allergy Verified 06/07/24 20:27 Physical Exam Vitals: Vital Signs Temp Pulse Resp BP Pulse Ox 06/08/24 08:27 88 18 154/84 96 06/08/24 06:53 91 16 172/75 96 06/08/24 06:00 86 14 179/77 97 06/08/24 05:00 72 103/70 96 06/08/24 04:00 97.8 F 72 14 126/72 97 06/08/24 03:00 81 117/76 95 06/08/24 02:00 87 134/78 98 06/08/24 01:00 80 14 113/85 97 06/08/24 00:03 101 H 18 122/81 96 06/07/24 23:40 98.8 F 100 20 117/89 95 06/07/24 22:30 96 18 124/98 96 06/07/24 21:30 101 H 18 150/77 96 06/07/24 20:59 105 H 18 110/85 96 06/07/24 19:18 98 F 111 H 18 117/78 98 Intake and Output 06/07/24 06/08/24 06/08/24 22:59 06:59 14:59 Other: Weight 109.769 kg Results - Lab Results Most recent lab results Calcium 8.9 mg/dL (8.4-10.2) 06/08/24 02:38 Phosphorus 5.1 mg/dL (2.5-4.5) H 06/08/24 02:38 Magnesium 2.1 mg/dL (1.6-2.3) 06/08/24 02:38 06/08/24 02:38 06/08/24 02:38 Assessment and Plan Plan: Assessment: 1. Acute kidney injury secondary to ATN. Creatinine 2.3 on admission and is 2.21 today. UA with 1+ protein. No hydronephrosis noted on kidney ultrasound. 2. Chronic kidney disease stage IIIb with baseline creatinine near 2 secondary to nephrosclerosis. 3. Hyperkalemia secondary to acute kidney injury, lisinopril and acidosis. 4. Metabolic acidosis secondary to lactic acidosis, acute kidney injury and IV fluids. 5. Kidney cyst. Patient will need to see urology outpatient for further workup. 6. Hypertension with chronic kidney disease. Plan: Maintain bicarb drip. Continue to hold lisinopril. Add amlodipine 5 mg once daily. Add as needed hydralazine. Avoid nephrotoxins. Continue to monitor renal function and urine output. Thank you for the consultation. I will continue to follow the patient with you during his hospital stay.
[2024-06-08] MEDS: amLODIPine 5 MG TAB PO SCH (11:37)
--- NOTE | 2024-06-08 12:12 | P.CRDCN ---
History of Present Illness Consult date: 06/08/24 Reason for Consult (text): Arrhythmia History of present illness: This is a 69-year-old male patient with past medical history of PAD, diabetes, hypertension, dyslipidemia, chronic kidney disease. We have been asked to evaluate the patient for arrhythmia. Patient came into the hospital as he was called because he had abnormal lab work done in the office. He denies having any chest pain, shortness of breath, lightheadedness or dizziness. He denies palpitations. Blood pressure 146/88, heart rate 86, pulse ox 98% on room air. Patient is seen today in the emergency center waiting for a bed on the cardiac stepdown unit. -EKG: Sinus tachycardia with left axis deviation. -Renal ultrasound: No hydronephrosis. Difficult scan. Multiple cortical lesions likely cysts. -Laboratory studies: WBC 7.8, hemoglobin 9.9. BUN 46, creatinine 2.21, potassium 5.4. Lactic acid 2.1 repeat 1.1. -Home cardiac medications: Lasix 40 mg daily, lisinopril 10 mg daily, Crestor 10 mg daily -Lexiscan Cardiolite stress test performed in the office on 03/01/2020 revealed nondiagnostic electrocardiogram stress testing response to Lexiscan, normal myocardial perfusion imaging. No evidence of stress-induced ischemia. Normal LV systolic function. -Echocardiogram performed in the office on 07/05/2016 revealed normal LV size and normal function. Mild mitral regurgitation, trace tricuspid regurgitation, mild pulmonic regurgitation. Review Of Systems: At the time of my exam: CONSTITUTIONAL: Denies fever or chills. HEENT: Denies blurred vision, vision changes, or eye pain. Denies hemoptysis CARDIOVASCULAR: Denies chest pain. Denies orthopnea. Denies PND. Denies palpitations RESPIRATORY: Denies shortness of breath. GASTROINTESTINAL: Denies abdominal pain. Denies nausea or vomiting. HEMATOLOGIC: Denies bleeding disorders. GENITOURINARY: Denies any blood in urine. SKIN: Denies puritis. Denies rash. Physical examination: Gen: This is a 69-year-old male in no acute distress VS: reviewed HEENT: Head is atraumatic, normocephalic. Pupils equal, round. Sclerae is anicteric. NECK: Supple. No JVD. LUNGS: Clear to auscultation. No wheezes or rhonchi. No intercostal retractions. HEART: Regular rate and rhythm. No murmur. ABDOMEN: Soft No tenderness. EXTREMITIES: No pedal edema. No calf tenderness. NEUROLOGICAL: Patient is awake, alert and oriented x3. Assessment: Sinus tachycardia Hyperkalemia No arrhythmia noted Acute kidney injury Metabolic acidosis Chronic kidney disease stage IIIb Kidney cyst on ultrasound PAD Diabetes Hypertension Dyslipidemia Plan: Resume patient's home cardiac medications, noted that both Lasix and lisinopril are on hold due to acute kidney injury No further cardiac workup is indicated at this time. Cardiology will sign off this case and follow on an as-needed basis. Please reconsult for any new concerns. Patient may follow-up in the office in one to 2 weeks. Thank you kindly for this consultation. Nurse practitioner note has been reviewed, I agree with documented findings and plan of care. Patient was seen and examined. Past Medical History Past Medical History: Coronary Artery Disease (CAD), Diabetes Mellitus, Hearing Disorder / Deafness, Hyperlipidemia, Hypertension, Osteoarthritis (OA), Rheumatoid Arthritis (RA) Additional Past Medical History / Comment(s): recent lt leg abscess-resolved Cellulitis LLLeg July 2017 History of Any Multi-Drug Resistant Organisms: None Reported, MRSA Date of last positivie culture/infection: 2015 MDRO Source:: leg abcess Past Surgical History: Back Surgery, Joint Replacement, Orthopedic Surgery, Tonsillectomy Additional Past Surgical History / Comment(s): rashmi shoulder, 1 total knee, neck - chiari 1 malformation Past Anesthesia/Blood Transfusion Reactions: No Reported Reaction Additional Past Anesthesia/Blood Transfusion Reaction / Comment(s): no previous blood transfusions Past Psychological History: Anxiety Smoking Status: Never smoker Past Alcohol Use History: Daily Past Drug Use History: None Reported - Past Family History Mother Family Medical History: Diabetes Mellitus, Hypertension Medications and Allergies Home Medications Medication Instructions Recorded Confirmed Type ALPRAZolam [Xanax] 0.25 mg PO BID PRN 06/07/24 06/07/24 History Furosemide [Lasix] 40 mg PO DAILY 06/07/24 06/07/24 History Lactulose 10 gm PO BID 06/07/24 06/07/24 History Rosuvastatin [Crestor] 10 mg PO DAILY 06/07/24 06/07/24 History lisinopriL [Zestril] 10 mg PO DAILY 06/07/24 06/07/24 History tiZANidine [Zanaflex] 4 mg PO BID PRN 06/07/24 06/07/24 History Allergies Allergy/AdvReac Type Severity Reaction Status Date / Time No Known Allergies Allergy Verified 06/07/24 20:27 Physical Exam Vitals: Vital Signs Temp Pulse Resp BP Pulse Ox 06/08/24 06:53 91 16 172/75 96 06/08/24 06:00 86 14 179/77 97 06/08/24 05:00 72 103/70 96 06/08/24 04:00 97.8 F 72 14 126/72 97 06/08/24 03:00 81 117/76 95 06/08/24 02:00 87 134/78 98 06/08/24 01:00 80 14 113/85 97 06/08/24 00:03 101 H 18 122/81 96 06/07/24 23:40 98.8 F 100 20 117/89 95 06/07/24 22:30 96 18 124/98 96 06/07/24 21:30 101 H 18 150/77 96 06/07/24 20:59 105 H 18 110/85 96 06/07/24 19:18 98 F 111 H 18 117/78 98 Intake and Output 06/07/24 06/08/24 06/08/24 22:59 06:59 14:59 Other: Weight 109.769 kg Results 06/08/24 02:38 06/08/24 02:38 Cardiac Enzymes 06/07/24 06/07/24 06/08/24 Range/Units 19:28 19:28 02:38 AST 15 L 14 L (17-59) U/L Troponin I <0.012 (0.000-0.034) ng/mL Coagulation 06/07/24 Range/Units 19:28 PT 10.1 (10.0-12.5) sec APTT 19.8 L (22.0-30.0) sec CBC 06/07/24 06/08/24 Range/Units 19:28 02:38 WBC 11.2 H 7.8 (3.8-10.6) k/uL RBC 3.30 L 3.03 L (4.30-5.90) m/uL Hgb 10.8 L 9.9 L (13.0-17.5) gm/dL Hct 33.5 L 30.8 L (39.0-53.0) % Plt Count 284 255 (150-450) k/uL Comprehensive Metabolic Panel 06/07/24 06/08/24 Range/Units 19:28 02:38 Sodium 141 140 (137-145) mmol/L Potassium 5.1 5.4 H (3.5-5.1) mmol/L Chloride 116 H 114 H (98-107) mmol/L Carbon Dioxide 8 L* 14 L (22-30) mmol/L BUN 50 H 46 H (9-20) mg/dL Creatinine 2.35 H 2.21 H (0.66-1.25) mg/dL Glucose 145 H 135 H (74-99) mg/dL Calcium 9.6 8.9 (8.4-10.2) mg/dL AST 15 L 14 L (17-59) U/L ALT 12 11 (4-49) U/L Alkaline Phosphatase 63 54 (38-126) U/L Total Protein 7.2 6.6 (6.3-8.2) g/dL Albumin 4.6 4.1 (3.5-5.0) g/dL Current Medications Generic Name Dose Route Start Last Admin Trade Name Freq PRN Reason Stop Dose Admin Acetaminophen 650 mg 06/08/24 06:06 Acetaminophen Tab 325 Mg Tab PO Q6HR PRN Fever and/ or Pain Alprazolam 0.25 mg 06/08/24 06:05 Alprazolam 0.25 Mg Tab PO BID PRN Anxiety Atorvastatin Calcium 20 mg 06/08/24 09:00 Atorvastatin 20 Mg Tab PO DAILY LEIDY Heparin Sodium (Porcine) 5,000 unit 06/08/24 09:00 Heparin Sodium,Porcine 5,000 Unit/Ml 1 Ml Vial SQ Q12HR LEIDY Hydromorphone HCl 1 mg 06/07/24 19:47 06/08/24 02:27 Hydromorphone 1 Mg/Ml 1 Ml Syringe IVP 1 mg Q4HR PRN Administration Pain Sodium Bicarbonate 150 ml/ 1,150 mls @ 75 mls/hr 06/07/24 22:30 06/07/24 22:44 Dextrose/Water IV 75 mls/hr .[id number] LEIDY Administration Naloxone HCl 0.2 mg 06/07/24 19:44 Naloxone 0.4 Mg/Ml 1 Ml Vial IV Q2M PRN Opioid Reversal Ondansetron HCl 4 mg 06/07/24 19:44 Ondansetron 4 Mg/2 Ml Vial IVP Q8HR PRN Nausea And Vomiting Pantoprazole Sodium 40 mg 06/08/24 07:30 06/08/24 06:20 Pantoprazole 40 Mg Tablet PO 40 mg [id number] LEIDY Administration Tizanidine HCl 4 mg 06/08/24 06:05 Tizanidine 4 Mg Tab PO BID PRN Muscle Spasm Intake and Output 06/07/24 06/08/24 06/08/24 22:59 06:59 14:59 Other: Weight 109.769 kg 06/08/24 02:38 06/08/24 02:38
[2024-06-08] MEDS: FAMOTIDINE 20 MG/2 ML VIAL IV SCH (20:53)
[2024-06-08] MEDS ORDERED: FAMOTIDINE 20 MG/2 ML VIAL IV SCH (21:00)
[2024-06-09 03:22] VITALS: TEMP 98.2
[2024-06-09 07:29] LABS: Basophils # (A) 0.1 k/uL (0-0.2); Basophils % (A) 1 %; Eosinophils # (A) 0.3 k/uL (0-0.7); Eosinophils % (A) 6 %; HCT 28.2 % (39.0-53.0); HGB 8.9 gm/dL (13.0-17.5); Hypochromasia Slight; Lymphocytes % (A) 21 %; MCH 32.1 pg (25.0-35.0); MCHC 31.6 g/dL (31.0-37.0); MCV 101.4 fL (80.0-100.0); Macrocytosis Slight; Mean Platelet Volume 7.2; Monocytes # (A) 0.5 k/uL (0-1.0); Monocytes % (A) 10 %; Neutrophils # (A) 2.8 k/uL (1.3-7.7); Neutrophils % (A) 59 %; Platelet Count 210 k/uL (150-450); RBC 2.78 m/uL (4.30-5.90); RDW 13.4 % (11.5-15.5); WBC 4.7 k/uL (3.8-10.6)
[2024-06-09 07:52] LABS: African American GFR (CKD) 41 (>60 ml/min/1.73 sqM); Anion Gap 9 mmol/L; Blood Urea Nitrogen 35 mg/dL (9-20); Calcium 8.6 mg/dL (8.4-10.2); Carbon Dioxide 22 mmol/L (22-30); Chloride 107 mmol/L (98-107); Glucose 108 mg/dL (74-99); Non-African American GFR(CKD) 35 (>60 ml/min/1.73 sqM); Potassium 4.8 mmol/L (3.5-5.1); Sodium 138 mmol/L (137-145)
--- NOTE | 2024-06-09 10:51 | P.PN ---
Subjective Patient is seen in follow-up for acute kidney injury on chronic kidney disease. Renal function better. Potassium level normal. Currently on bicarb drip. Admits to good urine output. No active complaints. Vital signs are stable. General: No acute distress. HEENT: Head exam is unremarkable. LUNGS: No audible rhonchi or wheezes. HEART: Rate and Rhythm are regular. ABDOMEN: Nontender. EXTREMITITES: No edema. Objective - Vital Signs Vital signs: Vital Signs Temp 98.2 F 06/09/24 08:00 Pulse 85 06/09/24 08:00 Resp 18 06/09/24 08:00 BP 133/82 06/09/24 08:00 Pulse Ox 95 06/09/24 08:00 FiO2 Intake & Output 06/08/24 06/09/24 06/09/24 18:59 06:59 18:59 Intake Total 20 240 Output Total 600 700 Balance -580 -460 Weight 109.769 kg 100.7 kg Intake: IV 20 Invasive Line 2 20 Oral 240 Output: Urine 600 700 Other: Voiding Method Toilet Toilet - Labs CBC & Chem 7: 06/09/24 07:08 06/09/24 07:08 Labs: Abnormal Lab Results - Last 24 Hours (Table) 06/09/24 06/09/24 Range/Units 07:08 07:08 RBC 2.78 L (4.30-5.90) m/uL Hgb 8.9 L (13.0-17.5) gm/dL Hct 28.2 L (39.0-53.0) % MCV 101.4 H (80.0-100.0) fL BUN 35 H (9-20) mg/dL Creatinine 1.91 H (0.66-1.25) mg/dL Glucose 108 H (74-99) mg/dL Assessment and Plan Plan: Assessment: 1. Acute kidney injury secondary to ATN. Creatinine 2.3 on admission and is 1.91 today. UA with 1+ protein. No hydronephrosis noted on kidney ultrasound. 2. Chronic kidney disease stage IIIb with baseline creatinine near 2 secondary to nephrosclerosis. 3. Hyperkalemia secondary to acute kidney injury, lisinopril and acidosis. Improved. 4. Metabolic acidosis secondary to lactic acidosis, acute kidney injury and IV fluids. Improved with bicarb drip. 5. Kidney cyst. Patient will need to see urology outpatient for further workup. 6. Hypertension with chronic kidney disease. Controlled. Plan: Hep-Lock IV fluids. Continue to hold lisinopril. Maintain amlodipine. Avoid nephrotoxins. Continue to monitor renal function and urine output. Follow-up outpatient 1 week postdischarge.
[2024-06-09 12:16] VITALS: BP 160/78; PULSE 76; RESP 16
--- NOTE | 2024-06-10 22:41 | P.DS ---
Providers Date of admission: 06/07/24 19:45 Attending physician: Vik Ceballos Consults: 06/07/24 19:44 Consult Physician Routine Consulting Provider: Bekah Scruggs Consult Reason/Comments: arrhythmia Do you want consulting provider notified?: Yes Consult Physician Routine Consulting Provider: Jorje Rios Consult Reason/Comments: CKD Do you want consulting provider notified?: Yes Primary care physician: Kim Alejo Hospital Course: Final Diagnosis Acute kidney injury due to ATN chronic kidney disease stage III Tachycardia and hypertension Chronic back pain and neck pain, mild Chronic anemia Metabolic acidosis, with possible elevated lactic acid and creatinine Kidney cyst. Patient will need to see urology outpatient for further workup. Discharge Disposition Patient cleared for discharge and recommending to hold lasix and lisinopril until follow up with nephrology and PCP. For the kidney cysts patient recommended to see urology. Follow up with Dr. Alejo in the office on discharge. Repeat labs in 2 to 3 days. Hospital Course This is a pleasant 69 years old male with past medical history of coronary artery disease, hypertension, hyperlipidemia, arthritis, anxiety, chronic alcholism. He has history of kidney disease and has been following up with his director equipment Dr. wise (? spell) as he explained, he was doing routine follow- up and she called him asking him to come to the emergency room because of his creatinine number. Patient has been seeing his director equipment for about 6 to 7 months. Patient denies any specific symptoms no chest pain or dyspnea no diarrhea or vomiting. No other GI or sympto he denies smoking alcohol or illicit drugs ms. No fever or chills. No headache dizziness weakness numbness. He has mild leukocytosis of 11.2, hemoglobin 10.8, creatinine elevated 2.35, baseline looks like 1.5-2 in 2021. Last month his creatinine was 2.4. Lactic acid elevated at 3.3, EKG showing sinus tachycardia at 116 with no significant S T-T changes. He is afebrile, is mildly tachycardic with heart rate 111-96. He was admitted to the hospital with cardiac and nephrology consultations. His renal ultrasound reveals multiple cortical lesions, likely cysts largest measuring up to 3.3. cm, assessment is limited due to patients condition. recommend contrast enhanced CT in 3 months for follow up. Patien had no hydronephrosis. Patient was started on bicarb gtt. Lisinopril and lasix were held. Creatinine came down to 1.9. Patient was started on amlodipine for blood pressure control. Please see medication reconciliation for a list of current medications. Thank you for allowing us to participate in the care of this patient. The impression and plan of care has been dictated by Roxane Matt, Nurse Practitioner as directed. Dr. Lake MD I have performed a history and physical examination and medical decision making of this patient, discussed the same with the dictator, and agree with the dictators assessment and plan as written, documented as a scribe. Based on total visit time, I have performed more than 50% of this visit. Patient Condition at Discharge: Fair Plan - Discharge Summary Discharge Rx Participant: No New Discharge Prescriptions: New amLODIPine [Norvasc] 5 mg PO DAILY #30 tab Continue tiZANidine [Zanaflex] 4 mg PO BID PRN PRN Reason: Muscle Spasm Rosuvastatin [Crestor] 10 mg PO DAILY ALPRAZolam [Xanax] 0.25 mg PO BID PRN PRN Reason: Anxiety Lactulose 10 gm PO BID Discontinued lisinopriL [Zestril] 10 mg PO DAILY Furosemide [Lasix] 40 mg PO DAILY Discharge Medication List ALPRAZolam [Xanax] 0.25 mg PO BID PRN 06/07/24 [History] Lactulose 10 gm PO BID 06/07/24 [History] Rosuvastatin [Crestor] 10 mg PO DAILY 06/07/24 [History] tiZANidine [Zanaflex] 4 mg PO BID PRN 06/07/24 [History] amLODIPine [Norvasc] 5 mg PO DAILY #30 tab 06/09/24 [Rx] Follow up Appointment(s)/Referral(s): Salvatore Joya MD [STAFF PHYSICIAN] - 2 Weeks (CALL AND MAKE RAYRAY!) Kim Alejo MD [Primary Care Provider] - 1-2 days (CALL AND MAKE RAYRAY!) Jorje Rios DO [STAFF PHYSICIAN] - 1 Week (CALL AND MAKE RAYRAY!) Ambulatory/Diagnostic Orders: Basic Metabolic Panel [LAB.AMB] Time Frame: 3 Days, Location: None Selected Magnesium [LAB.AMB] Location: None Selected Patient Instructions/Handouts: Chronic Kidney Disease (DC), Hyperkalemia (DC) Activity/Diet/Wound Care/Special Instructions: Follow up with the neurologist on discharge Repeat blood work in 2 to 3 days Continue holding lisinopril and lasix Discharge Disposition: HOME SELF-CARE
== END 2024-06-09 14:57 | disposition home or self-care (01) ==
LOC: EC 19:17 → 3SCARD 19:45 → INTOOBSV 19:45 → 3SCARD 22:19 → UNDODISIN 06-09 14:57
PROVIDERS: ADMIT Hospitalist; ATTEND Hospitalist
DX: N17.0 Acute kidney failure with tubular necrosis (principal); I12.9 Hypertensive chronic kidney disease with stage 1 through stage 4 chronic kidney disease, or unspecified chronic kidney disease; N18.32 Chronic kidney disease, stage 3b; E87.5 Hyperkalemia; T46.4X5A Adverse effect of angiotensin-converting-enzyme inhibitors, initial encounter; E87.20 Acidosis, unspecified; E11.22 Type 2 diabetes mellitus with diabetic chronic kidney disease; D72.829 Elevated white blood cell count, unspecified; R00.0 Tachycardia, unspecified; D64.9 Anemia, unspecified; N28.1 Cyst of kidney, acquired; E78.5 Hyperlipidemia, unspecified; E11.51 Type 2 diabetes mellitus with diabetic peripheral angiopathy without gangrene; I08.8 Other rheumatic multiple valve diseases; G89.29 Other chronic pain; M54.2 Cervicalgia; M54.9 Dorsalgia, unspecified; Z79.899 Other long term (current) drug therapy
CPT/HCPCS: 96376 ×4; 96366 ×2; 96372 ×3; 96375 ×2; 96361; 96365; 99291; 51798; 36415; 93005; 83880; 80053 ×2; 80048; 83605 ×2; 83735 ×3; 84100 ×2; 84484; 85025 ×3; 85610; 85730; 81001; 76770; G0378 ×3; J1644 ×2; J3490; J1171 ×3